=== PATIENT | male | born 1955 | race Caucasian/White ===

== ENCOUNTER 2017-02-10 10:51 | Day surgery (SDC) | payer BC, OTHER ==
[~2017-02-10 10:51] MED LIST: RINGER'S SOLUTION,LACTATED 1,000 ML IV PRN; ceFAZolin SODIUM 1 GM VIAL IV PRN
[2017-02-10] MEDS ORDERED: BUPIVACAINE HCL 50 ML VIAL IJ ONE (12:35)
[2017-02-10] MEDS ORDERED: RINGER'S SOLUTION,LACTATED 1,000 ML IV PRN (13:25)
[2017-02-10] MEDS ORDERED: oxyCODONE HCL/ACETAMINOPHEN 1 TAB TABLET PO PRN (13:26)
[2017-02-10] MEDS ORDERED: HYDROmorphone HCL 2 MG/ML VIAL IV PRN (13:27)
[2017-02-10 14:13] VITALS: BP 123/67
== END 2017-02-10 10:52 | disposition home or self-care (01) ==
LOC: AMB 10:51
PROVIDERS: ATTEND Orthopaedic Surgery
PROC: 0HQGXZZ Repair Left Hand Skin, External Approach (ICD-10-PCS; 2017-02-10)
PROC: 0PBV0ZZ Excision of Left Finger Phalanx, Open Approach (ICD-10-PCS; principal; 2017-02-10 13:25)
DX: S68.512 Complete traumatic transphalangeal amputation of left thumb (principal); F41.1 Generalized anxiety disorder; F32.9 Major depressive disorder, single episode, unspecified; Z68.34 Body mass index [BMI] 34.0-34.9, adult

== ENCOUNTER 2017-02-14 17:10 | Emergency (ER) | payer BC, OTHER ==
[2017-02-14 17:41] VITALS: BP 135/81
--- NOTE | 2017-02-14 18:10 | ERNOTE ---
Upper Extremity HPI - Narrative Date of Service: 02/14/17 - General Extremities Pain Location: thumb: left Time Seen by Provider: 02/14/17 17:41 Source: patient, family Exam Limitations: no limitations - Immun/Allergies/Home Medications Immunizations: IMMUNIZATION HX Immunizations Up to Date Yes History of Influenza Vaccine No Hx Pneumococcal Vaccination No Allergies/Adverse Reactions: Allergies Allergy/AdvReac Type Severity Reaction Status Date / Time nortriptyline [Nortriptyline] AdvReac Mild ALOPECIA Verified 02/14/17 17:40 Home Medications: HOME MEDICATIONS ALPRAZolam [Xanax] 1 mg PO QID PRN 09/13/14 [Last Taken Unknown] Escitalopram Oxalate [Lexapro] 10 mg PO BID 02/08/17 [Last Taken Unknown] HYDROcodone/ACETAMINOPHEN [[place] 10-325 Tablet] 1 each PO Q6H PRN 02/08/17 [ Last Taken Unknown] clonazePAM [Klonopin] 1 mg PO BID 02/08/17 [Last Taken Unknown] - History of Present Illness Narrative: Pt. comes in with c/o different looking incision than his previous thumb amputations after having his thumb operated on last . Pt. denies any SOB, CP, purulent drainage just states that the stitches are different than usually and he had blood on the dressing when he removed it today. Pt. denies any fever or prehospital treatment. Review of Systems - Review of Systems Constitutional: Present: no symptoms reported. Absent: recent illness, fever, chills, weakness, fatigue EYE: Present: no symptoms reported ENT: Present: no symptoms reported Respiratory: Present: no symptoms reported. Absent: shortness of breath, cough , wheezing Cardiology: Present: no symptoms reported. Absent: chest pain, palpitations, edema Musculoskeletal: Present: no symptoms reported Skin: Present: other - incision L thumb. Absent: rash, change in hair/nails Neurological: Present: no symptoms reported. Absent: headache, dizziness/light- headedness, numbness, tingling Endocrine: Present: no symptoms reported All Other Systems: All systems neg except as marked - Patient's Past Medical History Patient History - Medical: Anxiety, Depression, Migraines, Other Patient History - Cardiac/Respiratory: Sleep Apnea Patient History - Cancer: No Hx of Cancer Patient History - Surgical Procedures: Appendectomy, Cholecystectomy, Colonoscopy, ENT Patient History - Other: None - Family History Mother Family History - Medical: No pertinent hx Family History - Cardiac/Respiratory: No pertinent hx Family History - Cancer: No pertinent family hx Father Family History - Medical: , Other Family History - Cardiac/Respiratory: No pertinent hx Family History - Cancer: No pertinent family hx Sister Family History - Medical: No pertinent hx Family History - Cardiac/Respiratory: Myocardial Infarction Family History - Cancer: No pertinent family hx Brother Family History - Medical: No pertinent hx Family History - Cardiac/Respiratory: No pertinent hx Family History - Cancer: Melanoma - Social History Living Situations: spouse Abuse History: No History of abuse Psych History: Hx of Anxiety, Hx of Depression, Current tx/ever been on anti- depressants or anti-anxiety meds Smoking Status: Current every day smoker Have you smoked in the past 12 months: No Do you dip or chew tobacco: No Alcohol Use: none Drug Use: none - Immunizations Immunizations Up to Date: Yes Hx Pneumococcal Vaccination: No History of Influenza Vaccine: No Physical Exam - Physical Exam General Appearance: Present: wd/wn, alert, no apparent distress Head Exam: Present: normal inspection, no evidence of injury Eye Exam: Normal inspection: bilateral, PERRL: bilateral, EOMI: bilateral Ears, Nose, Throat: Present: normal ENT inspection, normal pharynx Neck: Present: normal inspection, nontender. Absent: lymphadenopathy (R), lymphadenopathy (L) Respiratory: Present: no respiratory distress, normal breath sounds, no accessory muscle use, chest nontender, lungs clear Extremity Exam: Present: non-tender, normal range of motion, extremity edema - L thumb tip mild inflammation from surgical procedure Neurological Exam: Present: alert, oriented, normal mood/affect, no motor/ sensory deficits Skin Exam: Present: normal color, warm/dry, other - incision L thumb no complications. Absent: pallor, skin rash ED Progress - Date and Time Seen: Date and Time: 02/14/17 17:[address] Pruitt and he recommends redressing the thumb and having pt. monitor for signs of infection. - Vital Signs Patient's Vital Signs:: I have reviewed the patient's vital signs. 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
== END 2017-02-14 18:08 | disposition home or self-care (01) ==
LOC: ER 17:10
DX: L76.22 Postprocedural hemorrhage of skin and subcutaneous tissue following other procedure (principal); Z89.012 Acquired absence of left thumb; Z48.01 Encounter for change or removal of surgical wound dressing; F17.200 Nicotine dependence, unspecified, uncomplicated; F41.9 Anxiety disorder, unspecified; F32.9 Major depressive disorder, single episode, unspecified

== ENCOUNTER 2020-04-05 15:42 | Observation (INO) ==
[2020-04-05] MEDS ORDERED: NORMAL SALINE 1,000 ML IV ONE (16:28)
[2020-04-05] MEDS ORDERED: KETOROLAC TROMETHAMINE 30 MG/ML VIAL IV ONE (16:28)
--- NOTE | 2020-04-05 16:30 | ERNOTE ---
Date of Service: 04/05/20 Time Seen by Provider: 04/05/20 16:07 Stated Complaint: Chills; Loss of taste Presenting Symptoms:: cough Source: patient, family, RN notes reviewed Exam Limitations: no limitations Immunizations: IMMUNIZATION HX Immunizations Up to Date No History of Influenza Vaccine No Hx Pneumococcal Vaccination No Allergies/Adverse Reactions: Allergies nortriptyline [Nortriptyline] Adverse Reaction (Mild, Verified 04/05/20 15:59) ALOPECIA Home Medications: HOME MEDICATIONS Durable Medical Equipment See Dose Instructions .ROUTE .MEDSUPPLY #1 ea 08/06/18 [Last Taken Unknown] cholecalciferol (vitamin D3) 125 mcg (5,000 unit) capsule 5,000 unit PO DAILY 08/06/18 [Last Taken Unknown] rizatriptan 10 mg tablet 10 mg PO Q2H PRN 12/04/19 [Last Taken Unknown] topiramate 15 mg sprinkle capsule 100 mg PO DAILY cap 01/04/20 [Last Taken Unknown] Escitalopram Oxalate [Lexapro] 20 mg PO DAILY 01/31/20 [Last Taken Unknown] alprazolam 1 mg tablet 1 mg PO TID PRN #90 tab 03/06/20 [Last Taken Unknown] aripiprazole 5 mg tablet 5 mg PO DAILY #30 tab 03/06/20 [Last Taken Unknown] hydrocodone 10 mg-acetaminophen 325 mg tablet See Rx Instructions .ROUTE .COMPLEX #75 tablet 03/14/20 [Last Taken Unknown] amoxicillin 875 mg-potassium clavulanate 125 mg tablet 1 tab PO Q12H 7 Days #14 tab 04/01/20 [Last Taken Unknown] - History of Present Ilness Narrative: Rolando is a 64 year old male brought to the ED by his for suspected COVID- 19. He has been ill for approximately a week and a half with sinus congestion. He was seen in the walk-in clinic on 04/01 and diagnosed with a sinus infection. He was prescribed Augmentin but reports no improvement in his symptoms. He also reports chills/sweats, body aches, headache, fatigue and a cough. He was on a trip with his brother when he began having symptoms. His brother tested positive for COVID-19 earlier this week. He also reports loss of taste. He has frequent migraines and takes [place] for pain. He has been taking more of this than usual and is concerned that he is going to run out. He is a non-smoker. He has no history of underlying respiratory problems. Frequency/Possible Cause: Reports: illness exposure Modifying Factors - Improves: Denies: antibiotics, rest Modifying Factors - Worsens: Reports: nothing Associated Symptoms: Reports: cough, facial pain, nasal congestion, nasal drainage, headache, muscle aches, fever/chills. Denies: chest pain/soreness, shortness of breath, wheezing, earache, sore throat Prior Treatment: Reports: recently seen, currently on antibiotics Review of Systems - Review of Systems Constitutional: Present: chills, diaphoresis, fatigue, malaise EYE: Absent: eye pain, eye discharge ENT: Present: nose congestion, nasal drainage. Absent: ear pain, sore throat Respiratory: Present: cough. Absent: shortness of breath Cardiology: Absent: chest pain, edema Gastrointestinal/Abdominal: Absent: vomiting, diarrhea Genitourinary: Present: no symptoms reported Musculoskeletal: Present: muscle pain. Absent: joint pain Skin: Absent: rash, lesions Neurological: Present: headache, weakness. Absent: dizziness/light-headedness Endocrine: Present: no symptoms reported Hematologic/Lymphatic: Absent: easy bruising, easy bleeding Psych: Present: no symptoms reported Medical History (Last Reviewed 04/05/20 @ 18:49 by Jennifer Payne NP) Anxiety (Chronic) Depression (Chronic) Chronic lower back pain (Chronic) Plantar fasciitis of right foot (Acute) Onychomycosis (Chronic) Lumbar spondylolysis (Chronic) Bilateral inguinal hernia (Acute) Amputation finger (Acute) Abdominal pain, LLQ Onset Date: 2013 IBS vs. diverticulitis vs. ? Abdominal pain, epigastric Onset Date: 2014 work-up for gallbladder Abdominal pain, generalized Onset Date: 2013 Allergic rhinitis Onset Date: 2013 Anxiety Onset Date: Unknown Arthritis Onset Date: Unknown of left hip Depression Onset Date: 2013 Fracture Onset Date: Unknown avulsion fracture of L hip Generalized anxiety disorder Onset Date: 2013 continue Xanax and buspirone, though may d/c buspirone as it has ? efficacy when combined with xanax Irritable bowel syndrome Onset Date: Unknown Low back pain Onset Date: 2013 lumbar degenerative disc disease Migraine Onset Date: Unknown HORTENCIA (obstructive sleep apnea) Onset Date: 2017 Seborrheic dermatitis Onset Date: 2013 Surgical History: Surgical History (Last Reviewed 04/05/20 @ 18:49 by Jennifer Payne NP) Thumb amputation status (Acute) History of appendectomy Onset Date: 1958 History of colonoscopy Onset Date: Unknown History of laparoscopic cholecystectomy Onset Date: 2014 [place] History of sinus surgery Onset Date: 2006 2004, 2006 History of thumb surgery Onset Date: 2014 left thumb amputation with shortening of distal phalanx and ablation of the thumbnail-Dr Pruitt 02/10/17-revision of left thumb amputation with excision of bone, recurrent nail ablation, removal of deep tissues-Dr. Pruitt hand surgery, left Onset Date: 2012 repair-has hardware present at base of ring finger History of carpal tunnel release Onset Date: ~01/31/20 Endoscopic bilateral carpal tunnel release: Dr. Pruitt Family History: Family History (Last Reviewed 04/05/20 @ 18:50 by Jennifer Payne NP) Family/Other Cholelithiasis Mother Alive and well Brother Melanoma Brother Melanoma Brother Alive and well Brother Alive and well Sister Myocardial infarction Sister Alive and well Father , 87-Parkinsons Parkinsons Grandmother Parkinsons Family/Other Parkinsons Social History: (Last Reviewed 04/05/20 @ 18:50 by Jennifer Payne NP) Social History: Marital status: household members: spouse current occupational status: employed Highest education level completed: Master's degree Service: No Alcohol: alcohol intake: never Substance Use: substance use type: does not use Dietary Habits: caffeine: No Physical Exam - Physical Exam General Appearance: Present: wd/wn, alert, other - In no acute distress but appears to not feel well Head Exam: Present: normal inspection Eye Exam: Normal inspection: bilateral Ears, Nose, Throat: Present: nasal congestion, normal pharynx. Absent: sinus pain/drainage, dry mucous membranes Neck: Present: normal inspection, nontender, supple, full range of motion Respiratory: Present: no respiratory distress, normal breath sounds, no accessory muscle use, lungs clear Cardiovascular/Chest: Present: regular rate, rhythm, no murmur, normal peripheral pulses Gastrointestinal/Abdominal: Present: nontender, nondistended, soft Extremity Exam: Present: normal inspection, normal range of motion, no edema Neurological Exam: Present: alert, oriented, normal mood/affect, no motor/sensory deficits Skin Exam: Present: normal color, diaphoresis Progress - Results and Orders Patient's Lab Results:: I have reviewed the patient's lab results. - Vital Signs Patient's Vital Signs:: I have reviewed the patient's vital signs. Vital Signs: Vital Signs 04/05/20 15:44 Temperature 37.1 C Pulse Rate 83 Respiratory Rate 16 Blood Pressure 159/83 H O2 Sat by Pulse Oximetry 92 L - X-Ray X-Ray #1 X-Ray: chest Interpretation: Reviewed by me X-ray Comments: Technique: Frontal views of the chest are evaluated. (1) views. Comparison: September 17, 2018. Findings: Low lung volumes with bibasilar bronchovascular crowding. There are bibasilar opacities. Ill-defined right midlung opacity. No pneumothorax or large pleural effusion. Cardiac silhouette is not enlarged. Mediastinal contours are normal. Mild fullness of the central pulmonary vasculature. There are degenerative changes. IMPRESSION: Hypoventilatory changes. Bibasilar opacities and ill-defined right midlung opacity, concerning for atypical viral pneumonia. Correlate clinically. Mild pulmonary vascular congestion. Electronically signed by Quan Barry D.O.. - Progress/Reassessment Chief Complaint: Flu Symptoms Progress:: Improved Plan - Plan Plan: The patient reports feeling a little bit better after having a liter of normal saline and IV Toradol. His oxygen saturation continued to be 88 to 90% on room air. He was placed on oxygen at 2 L via nasal cannula and his saturation has improved to 96%. His blood work is unremarkable. He has a normal lactic acid. Blood cultures are pending. His chest x-ray shows an atypical viral pneumonia. He is positive for COVID-19. I discussed with the patient that he could be admitted to the hospital or that he could be discharged home if he desired to do so. He feels that he would rather be in the hospital for at least [address] Segura was contacted and agreed to admit the patient. He was also given Decadron 10 mg IV push. Departure Clinical Impression: Pneumonia due to COVID-19 virus - Departure Disposition: Still a patient Condition: Stable Referrals: Mike Myers DO [Primary Care Provider] -
[2020-04-05 17:01] LABS: Hematocrit 44.3 % (42.0-52.0); Hemoglobin 14.7 gm/dL (13.5-18.0); Mean Cell Volume 91.9 fl (78-100); Mean Corpuscular Hemoglobin 30.5 pg (27-31); Mean Corpuscular Hgb Conc 33.2 g/dl (32-36); Mean Platelet Volume 10.2 fl (8-11.3); Neutrophil # 6.7 K/mm3 (1.3-6.0); Neutrophil % 81.8 % (42-75.0); Platelet Count 206 K/mm3 (150-450); Red Blood Count 4.82 M/mm3 (4.7-6.0); Red Cell Distribution Width 12.5 % (11.5-14.0); White Blood Count 8.2 K/mm3 (4.0-10.5)
[2020-04-05 17:15] LABS: Albumin * 3.1 gm/dl (3.4-5.0); Anion Gap 14.3 mmol/L (6.8-13.8); BUN/Creatinine Ratio 17.1 (9.0-21.6); Calcium * 8.6 mg/dL (7.9-10.9); Carbon Dioxide 25.7 mmol/L (24-32.6); Total Protein 7.4 gm/dL (6.2-8.2)
[2020-04-05] MEDS ORDERED: DEXAMETHASONE SODIUM PHOSP/PF 10 MG/ML VIAL IV ONE (17:53)
--- NOTE | 2020-04-05 19:57 | HP ---
Chief Complaint - Chief Complaint Date of Service: 04/05/20 Time of Service: 19:56 Chief Complaint: cough, shortness of breath History of Present Illness: Patient with past medical history of migraines and anxiety presents with 10 days of chills, cough, and generalized feeling unwell. He had gone on a motorcycle trip with his brother, who has tested positive for Covid. He went to a walk-in clinic 5 days prior, was diagnosed with a sinus infection, and started on Augmentin. He did not improve, and presented to our ED this afternoon. In the ED, his Covid test was positive. His temperature has not been elevated, and he had one low reading of 35.8. Pulse has been normal. He had one respiratory rate of 21, otherwise his respiratory rate is also normal. His oxygenation was in the upper 80s in the ED, which improved to the upper 90s with 2 L O2 via nasal cannula. He was admitted for oxygen administration. On my exam the evening of his admission, he was no longer requiring oxygen, and was breathing without difficulty. Medical History (Last Reviewed 04/05/20 @ 19:48 by Hedy Knox RN) Anxiety (Chronic) Depression (Chronic) Chronic lower back pain (Chronic) Plantar fasciitis of right foot (Acute) Onychomycosis (Chronic) Lumbar spondylolysis (Chronic) Bilateral inguinal hernia (Acute) Amputation finger (Acute) Abdominal pain, LLQ Onset Date: 2013 IBS vs. diverticulitis vs. ? Abdominal pain, epigastric Onset Date: 2014 work-up for gallbladder Abdominal pain, generalized Onset Date: 2013 Allergic rhinitis Onset Date: 2013 Anxiety Onset Date: Unknown Arthritis Onset Date: Unknown of left hip Depression Onset Date: 2013 Fracture Onset Date: Unknown avulsion fracture of L hip Generalized anxiety disorder Onset Date: 2013 continue Xanax and buspirone, though may d/c buspirone as it has ? efficacy when combined with xanax Irritable bowel syndrome Onset Date: Unknown Low back pain Onset Date: 2013 lumbar degenerative disc disease Migraine Onset Date: Unknown HORTENCIA (obstructive sleep apnea) Onset Date: 2017 Seborrheic dermatitis Onset Date: 2013 Surgical History: Surgical History (Last Reviewed 04/05/20 @ 19:48 by Hedy Knox RN) Thumb amputation status (Acute) History of appendectomy Onset Date: 1958 History of colonoscopy Onset Date: Unknown History of laparoscopic cholecystectomy Onset Date: 2014 [place] History of sinus surgery Onset Date: 2006 2004, 2006 History of thumb surgery Onset Date: 2014 left thumb amputation with shortening of distal phalanx and ablation of the thumbnail-Dr Pruitt 02/10/17-revision of left thumb amputation with excision of bone, recurrent nail ablation, removal of deep tissues-Dr. Pruitt hand surgery, left Onset Date: 2012 repair-has hardware present at base of ring finger History of carpal tunnel release Onset Date: ~01/31/20 Endoscopic bilateral carpal tunnel release: Dr. Pruitt Family History: Family History (Last Reviewed 04/05/20 @ 19:48 by Hedy Knox RN) Family/Other Cholelithiasis Mother Alive and well Brother Melanoma Brother Melanoma Brother Alive and well Brother Alive and well Sister Myocardial infarction Sister Alive and well Father , 87-Parkinsons Parkinsons Grandmother Parkinsons Family/Other Parkinsons Social History: (Last Reviewed 04/05/20 @ 19:48 by Hedy Knox RN) Social History: Marital status: household members: spouse current occupational status: employed Highest education level completed: Master's degree Service: No Alcohol: alcohol intake: never Substance Use: substance use type: does not use Dietary Habits: caffeine: No Review Of Systems (GEN) - Review of Systems Generalized/Overall Review: Present: Chills, Fatigue EENTM: Present: Other - decreased sense of taste Respiratory: Present: Cough, Shortness of Breath Cardiac: Absent: Chest Pain, Edema Abdominal: Present: Abdominal Pain - slight, started today Genitourinary: Present: No Symptoms Reported Neurological: Present: Headache - new headaches in addition to baseline migraines Skin: Present: No Symptoms Reported Immunizations: IMMUNIZATION HX Immunizations Up to Date No History of Influenza Vaccine No Hx Pneumococcal Vaccination No Allergies/Adverse Reactions: Allergies Allergy/AdvReac Type Severity Reaction Status Date / Time nortriptyline [Nortriptyline] AdvReac Mild ALOPECIA Verified 04/05/20 15:59 Home Medications: HOME MEDICATIONS Durable Medical Equipment See Dose Instructions .ROUTE .MEDSUPPLY #1 ea 08/06/18 [Last Taken Unknown] cholecalciferol (vitamin D3) 125 mcg (5,000 unit) capsule 5,000 unit PO DAILY 08/06/18 [Last Taken Unknown] topiramate 15 mg sprinkle capsule 100 mg PO DAILY cap 01/04/20 [Last Taken Unknown] Escitalopram Oxalate [Lexapro] 20 mg PO DAILY 01/31/20 [Last Taken Unknown] alprazolam 1 mg tablet 1 mg PO TID PRN #90 tab 03/06/20 [Last Taken Unknown] aripiprazole 5 mg tablet 5 mg PO DAILY #30 tab 03/06/20 [Last Taken Unknown] amoxicillin 875 mg-potassium clavulanate 125 mg tablet 1 tab PO Q12H 7 Days #14 tab 04/01/20 [Last Taken Unknown] HYDROcodone/ACETAMINOPHEN [[place] 10-325 Tablet] See Rx Instructions PO Q6H PRN 04/05/20 [Last Taken Unknown] Exam - Exam Vital Signs: Vital Signs - Last Taken Temp 36.6 C 04/05/20 19:25 Pulse 66 04/05/20 19:25 Resp 20 04/05/20 19:25 BP 114/67 04/05/20 19:25 Pulse Ox 100 04/05/20 19:25 Constitutional: Present: Alert, Cooperative, No distress Respiratory: Present: lungs clear, normal breath sounds, no respiratory distre ss, No rales, No wheezing Cardiovascular/Chest: Present: regular rate, rhythm Abdomen: Present: soft, nontender Extremity: Absent: lower extremity edema Appearance: Present: appropriate appearance Eye contact: Present: cooperative, good eye contact Diagnostic Studies: Abnormal Lab Results 04/05/20 04/05/20 04/05/20 Range/Units 16:50 16:50 16:50 Immature Gran % (Auto) 0.60 H (0.001-0.429) % Immature Gran # (Auto) 0.05 H (0.000-0.0310) K/mm3 Neutrophils % 81.8 H (42-75.0) % Lymphocytes % 9.7 L (20-51) % Neutrophils # 6.7 H (1.3-6.0) K/mm3 Lymphocytes # 0.80 L (1.5-3.5) k/mm3 Anion Gap 14.3 H (6.8-13.8) mmol/L Random Glucose 119 H (70-110) mg/dL Albumin 3.1 L (3.4-5.0) gm/dl SARS-CoV-2 (PCR) Detected H (NotDetected) Laboratory Results WBC 8.2 K/mm3 (4.0-10.5) 04/05/20 16:50 RBC 4.82 M/mm3 (4.7-6.0) 04/05/20 16:50 Hgb 14.7 gm/dL (13.5-18.0) 04/05/20 16:50 Hct 44.3 % (42.0-52.0) 04/05/20 16:50 MCV 91.9 fl (78-100) 04/05/20 16:50 MCH 30.5 pg (27-31) 04/05/20 16:50 MCHC 33.2 g/dl (32-36) 04/05/20 16:50 RDW 12.5 % (11.5-14.0) 04/05/20 16:50 Plt Count 206 K/mm3 (150-450) 04/05/20 16:50 MPV 10.2 fl (8-11.3) 04/05/20 16:50 Immature Gran % (Auto) 0.60 % (0.001-0.429) H 04/05/20 16:50 Immature Gran # (Auto) 0.05 K/mm3 (0.000-0.0310) H 04/05/20 16:50 Neutrophils % 81.8 % (42-75.0) H 04/05/20 16:50 Lymphocytes % 9.7 % (20-51) L 04/05/20 16:50 Monocytes % 7.8 % (0.0-9) 04/05/20 16:50 Eosinophils % 0.0 % (0.0-3.0) 04/05/20 16:50 Basophils % 0.1 % (0.0-1.0) 04/05/20 16:50 Nucleated RBC % 0.0 k/mm3 (0-1) 04/05/20 16:50 Neutrophils # 6.7 K/mm3 (1.3-6.0) H 04/05/20 16:50 Lymphocytes # 0.80 k/mm3 (1.5-3.5) L 04/05/20 16:50 Monocytes # 0.6 k/mm3 (0.0-1.0) 04/05/20 16:50 Eosinophils # 0.0 k/mm3 (0.0-0.7) 04/05/20 16:50 Absolute Basophils 0.0 k/mm3 (0.0-0.1) 04/05/20 16:50 Sodium 136 mmol/L (132-142) 04/05/20 16:50 Plasma Sodium 136 mmol/L (130-142) 04/05/20 16:50 Potassium 4.0 mmol/L (3.4-4.6) 04/05/20 16:50 Chloride 100 mmol/L (97-106) 04/05/20 16:50 Carbon Dioxide 25.7 mmol/L (24-32.6) 04/05/20 16:50 Anion Gap 14.3 mmol/L (6.8-13.8) H 04/05/20 16:50 BUN 21 mg/dL (6-23) 04/05/20 16:50 Creatinine 1.23 mg/dL (0.4-1.4) 04/05/20 16:50 Est GFR (Non-Af Amer) 63 mL/min (60-130) 04/05/20 16:50 BUN/Creatinine Ratio 17.1 (9.0-21.6) 04/05/20 16:50 Random Glucose 119 mg/dL (70-110) H 04/05/20 16:50 Lactic Acid, Venous 1.0 mmol/L (0.4-2.0) 04/05/20 16:50 Calcium 8.6 mg/dL (7.9-10.9) 04/05/20 16:50 Calcium Adj for Albumin 9.0 mg/dL (8.4-10.2) 04/05/20 16:50 Total Bilirubin 1.0 mg/dL (0.0-1.1) 04/05/20 16:50 AST 30 U/L (0-48) 04/05/20 16:50 ALT 32 U/L (19-67) 04/05/20 16:50 Alkaline Phosphatase 65 U/L (50-170) 04/05/20 16:50 Total Protein 7.4 gm/dL (6.2-8.2) 04/05/20 16:50 Albumin 3.1 gm/dl (3.4-5.0) L 04/05/20 16:50 SARS-CoV-2 (PCR) Detected (NotDetected) H 10/23/20 16:50 Assessment/Plan - Narrative Narrative: He is out of the treatment window to start remdesivir. He was given a dose of dexamethasone in the ED, and will continue daily. Will administer oxygen as needed, though he is not needing any currently. He is afebrile and white blood cell count not elevated. He does not need antibiotics at this time. If he does not need oxygen tonight or in the morning, could potentially DC home tomorrow afternoon. We will continue home medications for migraines, anxiety, depression. - Assessment/Plan (1) Pneumonia due to COVID-19 virus Problem: Acute (2) Migraines Problem: Chronic (3) Anxiety Problem: Chronic (4) Depression Problem: Chronic Qualifiers: Depression Type: major depressive disorder Major depression recurrence: recurrent Active/Remission status: currently active Major depression episode severity: moderate Qualified Code(s): F33.1 - Major depressive disorder, recurrent, moderate
[2020-04-05] MEDS ORDERED: ACETAMINOPHEN PO PRN (20:35)
[2020-04-05] MEDS ORDERED: ALPRAZolam 1 MG TABLET PO PRN (20:35)
[2020-04-05] MEDS ORDERED: HYDROCODONE PO PRN (20:35)
[2020-04-05] MEDS ORDERED: HYDROcodone/ACETAMINOPHEN 1 EACH TABLET PO PRN (20:55)
[2020-04-06] MEDS ORDERED: ARIPiprazole 5 MG TABLET PO SCH (09:00)
[2020-04-06] MEDS ORDERED: TOPIRAMATE 50 MG TABLET PO SCH (09:00)
[2020-04-06] MEDS ORDERED: ESCITALOPRAM OXALATE 10 MG TAB PO SCH (09:00)
[2020-04-06] MEDS ORDERED: CHOLECALCIFEROL 5,000 UNIT TABLET PO SCH (09:00)
[2020-04-06] MEDS ORDERED: DEXAMETHASONE SODIUM PHOSP/PF 10 MG/ML VIAL IV ONE (09:00)
--- NOTE | 2020-04-06 12:45 | DS ---
(1) Pneumonia due to COVID-19 virus Problem: Acute (2) Migraines Problem: Chronic (3) Anxiety Problem: Chronic (4) Depression Problem: Chronic Qualifiers: Depression Type: major depressive disorder Major depression recurrence: recurrent Active/Remission status: currently active Major depression episode severity: moderate Qualified Code(s): F33.1 - Major depressive disorder, recurrent, moderate Date of Discharge:: 04/06/20 Hospital Course: Patient with past medical history of migraines and anxiety presents with 10 days of chills, cough, and generalized feeling unwell. He had gone on a motorcycle trip with his brother, who has tested positive for Covid. He went to a walk-in clinic on 04/01/20, was diagnosed with a sinus infection, and started on Augmentin. He did not improve, and presented to our ED on 04/05/20. In the ED, his Covid test was positive. His temperature was not elevated, and he had one low reading of 35.8. Pulse normal. He had a couple of elevated respiratory rates of 23 and 21, otherwise his respiratory rate was also normal. His oxygenation was in the upper 80s in the ED, which improved to the upper 90s with 2 L O2 via nasal cannula. He was admitted for oxygen administration, and started on IV dexamethasone. On my exam the evening of admission, he was no longer requiring oxygen, and was breathing without difficulty. He did not require oxygen overnight. He felt comfortable leaving on the day of DC. Will continue 5 additional days of 6 mg dexamethasone via tablet/capsule. Procedures Performed: none Results and Findings: Lab Pending Results 04/05/20 16:50: WBC 8.2, RBC 4.82, Hgb 14.7, Hct 44.3, MCV 91.9, MCH 30.5, MCHC 33.2, RDW 12.5, Plt Count 206, MPV 10.2, Immature Gran % (Auto) 0.60 H, Immature Gran # (Auto) 0.05 H, Neutrophils % 81.8 H, Lymphocytes % 9.7 L, Monocytes % 7.8, Eosinophils % 0.0, Basophils % 0.1, Nucleated RBC % 0.0, Neutrophils # 6.7 H, Lymphocytes # 0.80 L, Monocytes # 0.6, Eosinophils # 0.0, Absolute Basophils 0.0 04/05/20 16:50: Sodium 136, Plasma Sodium 136, Potassium 4.0, Chloride 100, Carbon Dioxide 25.7, Anion Gap 14.3 H, BUN 21, Creatinine 1.23, Est GFR (Non-Af Amer) 63, BUN/Creatinine Ratio 17.1, Random Glucose 119 H, Calcium 8.6, Calcium Adj for Albumin 9.0, Total Bilirubin 1.0, AST 30, ALT 32, Alkaline Phosphatase 65, Total Protein 7.4, Albumin 3.1 L 04/05/20 16:50: Lactic Acid, Venous 1.0 04/05/20 16:50: SARS-CoV-2 (PCR) Detected H Discharge Location: Home Disposition: Home self-care Condition: Stable Discharge Activity: Activity as tolerated Discharge Diet: General/regular food Referrals: Mike Myers DO [Primary Care Provider] - Two Weeks Prescriptions (Any new or edited meds): Dexamethasone [Decadron] 6 mg PO DAILY #5 tab Transmission Status: Pending to [facility] Complete Home Medications List: Complete Home Medication List: Durable Medical Equipment See Dose Instructions .ROUTE .MEDSUPPLY #1 ea 08/06/18 cholecalciferol (vitamin D3) 125 mcg (5,000 unit) capsule 5,000 unit PO DAILY 08/06/18 topiramate 15 mg sprinkle capsule 100 mg PO DAILY cap 01/04/20 Escitalopram Oxalate [Lexapro] 20 mg PO DAILY 01/31/20 alprazolam 1 mg tablet 1 mg PO TID PRN #90 tab 03/06/20 aripiprazole 5 mg tablet 5 mg PO DAILY #30 tab 03/06/20 HYDROcodone/ACETAMINOPHEN [[place] 10-325 Tablet] See Rx Instructions PO Q6H PRN 04/05/20 Dexamethasone [Decadron] 6 mg PO DAILY #5 tab 04/06/20 HYDROcodone/ACETAMINOPHEN [[place] 5-325] 1 ea PO Q6H PRN tab 04/06/20
[2020-04-06 13:27] VITALS: BP 134/78
[2020-04-07] MEDS ORDERED: ESCITALOPRAM OXALATE 10 MG TAB PO SCH (09:00)
== END 2020-04-06 13:41 | disposition home or self-care (01) ==
LOC: MS 15:42 → ER 15:42 → MS 19:11
PROVIDERS: ADMIT Family Medicine; ATTEND Family Medicine
DX: J12.89 Other viral pneumonia; U07.1 COVID-19